=== PATIENT | female | born 1955 | race Caucasian/White ===

== ENCOUNTER → 2020-01-15 07:59 | Outpatient (CLI) | payer MEDICARE, SELFPAY ==
[2020-01-15 12:53] LABS: Add Manual Diff / Slide Review NO; Basophils Absolute Auto 0 /uL (0-100); Basophils Percent Auto 0.6 % (0-2); Eosinophils Absolute Auto 100 /uL (0-450); Eosinophils Percent Auto 3.2 % (2-4); Hematocrit 37.1 % (36-46); Hemoglobin 11.6 g/dL (12.0-16.0); Lymphocytes Absolute Auto 1100 /uL (1100-4500); Lymphocytes Percent Auto 30.2 % (25-40); Mean Corpuscular HGB Conc 31.3 % (30-36); Mean Corpuscular Hemoglobin 23.3 PG (26-34); Mean Corpuscular Volume 74.3 fL (80-100); Monocytes Absolute Auto 400 /uL (0-900); Monocytes Percent Auto 10.7 % (3-14); Neutrophils Absolute Auto 2000 /uL (1500-7000); Neutrophils Percent Auto 55.3 % (50-75); Platelet Count 156 X10^3/uL (150-400); Red Cell Distribution Width 16.5 % (11.6-14.8); White Blood Cell Count 3.7 X10^3/uL (4.5-11.0)
[2020-01-15 13:05] LABS: Alanine Aminotransferase 24 IU/L (<35); Albumin 4.1 g/dL (3.5-5.0); Albumin Globulin Ratio 1.6 (1.0-2.8); Alkaline Phosphatase 67 U/L (38-126); Aspartate Aminotransferase 31 IU/L (14-36); BUN Creatinine Ratio 23.2 (6-22); Bilirubin Total 0.4 mg/dL (0.2-1.3); Blood Urea Nitrogen 16 mg/dL (7-17); Calcium 8.9 mg/dL (8.4-10.2); Carbon Dioxide 32 mmol/L (22-32); Chloride 101 mmol/L (98-107); Cholesterol 292 mg/dL (140-199); Estimated Glomerular Filt Rate > 60.0 mL/min (>60); Globulin 2.6 g/dL (1.7-4.1); Glucose 96 mg/dL (80-110); HDL Cholesterol 46 mg/dL (40-60); HEMOLYSIS < 15 (0-50); LDL Cholesterol Calculated 213 mg/dL (<100); Potassium 4.1 mmol/L (3.4-5.1); Sodium 137 mmol/L (137-145); Total Protein 6.7 g/dL (6.3-8.2); Triglycerides 166 mg/dL (35-150)
[2020-01-16 01:39] LABS: COVID19 Sendout Not Detected (Not Detect)
== END ==
PROVIDERS: Physician Assistant; Referring Provider Internal Medicine; Visit Provider Internal Medicine
DX: Z11.59 Encounter for screening for other viral diseases (principal); E78.5 Hyperlipidemia, unspecified
CPT/HCPCS: 36415; 80053; 80061; 85025; 87635

== ENCOUNTER → 2020-02-24 07:01 | Outpatient (CLI) | payer MEDICARE, SELFPAY ==
[2020-02-24 07:27] LABS: Alanine Aminotransferase 19 IU/L (<35); Cholesterol 182 mg/dL (140-199); HDL Cholesterol 51 mg/dL (40-60); LDL Cholesterol Calculated 97 mg/dL (<100); Triglycerides 172 mg/dL (35-150)
== END ==
PROVIDERS: PCP Internal Medicine; Referring Provider Internal Medicine; Visit Provider Internal Medicine
DX: E78.5 Hyperlipidemia, unspecified (principal)
CPT/HCPCS: 36415; 80061; 84460

== ENCOUNTER → 2020-11-04 10:56 | Outpatient (CLI) | payer OTHER, SELFPAY ==
--- NOTE | 2020-11-04 | DI.MG.S_ITS ---
BILATERAL DIGITAL SCREENING MAMMOGRAM 3D/2D WITH CAD: 11/04/2020 CLINICAL: Routine screening. Comparison is made to exams dated: 03/27/2019 mammogram, 11/07/2017 mammogram, 09/20/2015 mammogram, and 10/27/2013 mammogram - outside facility. The tissue of both breasts is heterogeneously dense. This may lower the sensitivity of mammography. Current study was also evaluated with a Computer Aided Detection (CAD) system. No significant masses, calcifications, or other findings are seen in either breast. There has been no significant interval change. IMPRESSION: NEGATIVE There is no mammographic evidence of malignancy. A 1 year screening mammogram is recommended. This exam was interpreted at Station ID: [id number]. NOTE: For mammograms, a report in lay terms will be sent to the patient. Approximately 15% of breast malignancies will not be visualized mammographically. In the management of a palpable breast mass, a negative mammogram must not discourage biopsy of a clinically suspicious lesion. Electronically Signed By: Sam saab/yolanda:11/04/2020 16:28:25 letter sent: Normal Exam ACR BI-RADS Category 1: Negative 3341F
== END ==
PROVIDERS: PCP Physician Assistant; Referring Provider Physician Assistant; Visit Provider Physician Assistant
DX: Z12.31 Encounter for screening mammogram for malignant neoplasm of breast (principal)
CPT/HCPCS: 77063; 77067

== ENCOUNTER → 2021-04-17 16:10 | Outpatient (CLI) | payer OTHER, SELFPAY ==
--- NOTE | 2021-04-17 | DI.RAD.S_ITS ---
PROCEDURE: XR HIP W PEL IF DONE RT 2V INDICATIONS: PAIN TECHNIQUE: AP pelvis with lateral view(s) of the right hip(s). COMPARISON: [facility], CR, XR LUMBAR SPINE 2-3V, 04/17/2021, 16:12. FINDINGS: Bones: No fractures or dislocations. Pelvic ring appears intact. No suspicious bony lesions. Mild joint narrowing with periarticular osteophyte formation. Degenerative disc and facet disease involves the inferior lumbar spine. Soft tissues: The visualized bowel gas pattern is normal. No suspicious soft tissue calcifications. IMPRESSION: Mild symmetric hip joint degeneration. Dictated by: Vernon Carlin RR Interpreted: Carlos Woods MD on 04/17/2021 at 16:44 Transcribed by: ANASTASIA on 04/17/2021 at 16:45 Approved by: Carlos Woods M.D. on 04/17/2021 at 17:09
--- NOTE | 2021-04-17 | DI.RAD.S_ITS ---
PROCEDURE: XR CERVICAL SPINE 2V OR 3V INDICATIONS: PAIN TECHNIQUE: 3 view(s) of the cervical spine were acquired. COMPARISON: None. FINDINGS: Bones: No fractures or dislocations to the C7-T1 level. There is straightening and reversal of normal cervical lordosis. Degenerative endplate changes, loss of disc height and bilateral facet hypertrophic changes are noted throughout cervical spine more prominent at C4-5 and C5-6 levels. The lateral masses of C1 appear intact on the odontoid view. No suspicious bony lesions. Soft tissues: No prevertebral soft tissue swelling. IMPRESSION: No acute cervical spine fracture or dislocation. Degenerative disc disease throughout cervical spine as above. Dictated by: Carlos Woods M.D. on 04/17/2021 at 16:46 Approved by: Carlos Woods M.D. on 04/17/2021 at 16:52
--- NOTE | 2021-04-17 | DI.RAD.S_ITS ---
PROCEDURE: XR LUMBAR SPINE 2-3V INDICATIONS: PAIN TECHNIQUE: 3 views of the lumbar spine were acquired. COMPARISON: None. FINDINGS: Bones: 5 zpi-hpm-akzrsly vertebrae are present. Mild levoscoliosis centered at the L3 level. Multilevel grade 1 retrolisthesis. Grade 1 spondylolisthesis L5-S1. Multilevel disc degeneration, moderate to severe at the L5-S1 level. Moderate L4-L5 and L5-S1 facet joint arthropathy. No vertebral body compression fractures. No suspicious bony lesions. Soft tissues: Overlying bowel gas pattern is normal. No suspicious soft tissue calcifications. IMPRESSION: Multilevel spondylosis. Dictated by: Vernon Carlin RRA Interpreted: Carlos Woods MD on 04/17/2021 at 16:48 Transcribed by: ANASTASIA on 04/17/2021 at 16:49 Approved by: Carlos Woods M.D. on 04/17/2021 at 17:09
== END ==
PROVIDERS: PCP Physician Assistant; Referring Provider Physician Assistant; Visit Provider Physician Assistant
DX: M47.816 Spondylosis without myelopathy or radiculopathy, lumbar region (principal); M47.817 Spondylosis without myelopathy or radiculopathy, lumbosacral region; M50.321 Other cervical disc degeneration at C4-C5 level; M16.11 Unilateral primary osteoarthritis, right hip; M25.551 Pain in right hip
CPT/HCPCS: 72040; 72100; 73502

== ENCOUNTER → 2022-10-10 16:23 | Outpatient (CLI) | payer OTHER, SELFPAY ==
--- NOTE | 2022-10-10 | DI.MG.S_ITS ---
BILATERAL DIGITAL SCREENING MAMMOGRAM 3D/2D WITH CAD: 10/10/2022 CLINICAL: Routine screening. Comparison is made to exams dated: 11/04/2020 mammogram - [facility], 03/27/2019 mammogram, and 11/07/2017 mammogram - outside facility. There are scattered areas of fibroglandular density in both breasts (category b / 25%-50% glandular tissue). Current study was also evaluated with a Computer Aided Detection (CAD) system. No significant masses, calcifications, or other findings are seen in either breast. There has been no significant interval change. IMPRESSION: NEGATIVE There is no mammographic evidence of malignancy. A 1 year screening mammogram is recommended. Based on the Tyrer Cuzick model (a risk assessment model) the patient's lifetime risk is 5.9% and her 10 year risk is 3.5%. According to the ACR, ACS, and NCCN guidelines, an annual breast MRI exam along with mammogram is recommended if the patient's lifetime risk is 20% or greater. This exam was interpreted at Station ID: [id number]. NOTE: For mammograms, a report in lay terms will be sent to the patient. Approximately 15% of breast malignancies will not be visualized mammographically. In the management of a palpable breast mass, a negative mammogram must not discourage biopsy of a clinically suspicious lesion. Electronically Signed By: Miguel Angel prasad/yolanda:10/11/2022 08:51:51 letter sent: Normal Exam ACR BI-RADS Category 1: Negative 3341F
== END ==
PROVIDERS: PCP Physician Assistant; Referring Provider Physician Assistant; Visit Provider Physician Assistant
DX: Z12.31 Encounter for screening mammogram for malignant neoplasm of breast (principal)
CPT/HCPCS: 77063; 77067

== ENCOUNTER → 2022-12-28 16:15 | Outpatient (CLI) | payer OTHER, SELFPAY ==
--- NOTE | 2022-12-28 16:17 | DI.RAD.S_ITS ---
PROCEDURE: XR WRIST LT MIN 3V INDICATIONS: Left wrist injury TECHNIQUE: 4 views of the wrist were acquired. COMPARISON: None. FINDINGS: Bones: No fractures or dislocations. No suspicious bony lesions. Moderate osteoarthritic changes of the triscaphe and 1st carpometacarpal joint. Osteoarthritic changes of the 1st interphalangeal joint. Scaphoid view: No fracture. Soft tissues: No suspicious soft tissue calcifications. IMPRESSION: No acute osseous abnormality. If pain persists with conservative management, consider repeat x-ray in 10-14 days or cross-sectional imaging. Dictated by: Xavier Ag M.D. on 12/28/2022 at 16:39 Approved by: Xavier Ag M.D. on 12/28/2022 at 16:40
== END ==
PROVIDERS: PCP Physician Assistant; Referring Provider Registered Nurse; Visit Provider Registered Nurse
DX: M25.532 Pain in left wrist (principal)
CPT/HCPCS: 73110

== ENCOUNTER → 2023-07-08 06:55 | Outpatient (CLI) | payer MEDICARE, SELFPAY ==
[2023-07-08 08:01] LABS: Add Manual Diff / Slide Review NO; Basophils Absolute Auto 100 /uL (0-100); Basophils Percent Auto 1.3 % (0-2); Eosinophils Absolute Auto 100 /uL (0-450); Eosinophils Percent Auto 2.4 % (2-4); Hemoglobin 13.9 g/dL (12.0-16.0); Lymphocytes Absolute Auto 1200 /uL (1100-4500); Lymphocytes Percent Auto 27.9 % (25-40); Mean Corpuscular HGB Conc 33.1 % (30-36); Mean Corpuscular Hemoglobin 28.9 PG (26-34); Mean Corpuscular Volume 87.4 fL (80-100); Monocytes Absolute Auto 500 /uL (0-900); Monocytes Percent Auto 10.2 % (3-14); Neutrophils Absolute Auto 2600 /uL (1500-7000); Neutrophils Percent Auto 58.2 % (50-75); Platelet Count 159 X10^3/uL (150-400); Red Cell Distribution Width 13.6 % (11.6-14.8); White Blood Cell Count 4.4 X10^3/uL (4.5-11.0)
[2023-07-08 08:05] LABS: Hemoglobin A1C% w Est Avg Glu 5.2 % (4.0-6.0)
[2023-07-08 08:22] LABS: Alanine Aminotransferase 45 IU/L (<35); Albumin 4.1 g/dL (3.5-5.0); Albumin Globulin Ratio 1.8 (1.0-2.8); Alkaline Phosphatase 67 U/L (38-126); Aspartate Aminotransferase 30 IU/L (14-36); BUN Creatinine Ratio 21.4 (6-22); Bilirubin Total 0.5 mg/dL (0.2-1.3); Blood Urea Nitrogen 15 mg/dL (7-17); Calcium 8.8 mg/dL (8.4-10.2); Carbon Dioxide 29 mmol/L (22-32); Chloride 103 mmol/L (98-107); Cholesterol 208 mg/dL (140-199); Estimated Glomerular Filt Rate > 60 mL/min (>60); Globulin 2.3 g/dL (1.7-4.1); Glucose 105 mg/dL (80-110); HDL Cholesterol 53 mg/dL (40-60); HEMOLYSIS < 15 (0-50); LDL Cholesterol Calculated 130 mg/dL (<100); Potassium 4.2 mmol/L (3.4-5.1); Sodium 135 mmol/L (137-145); Total Protein 6.4 g/dL (6.3-8.2); Triglycerides 127 mg/dL (35-150)
[2023-07-08 08:25] LABS: High Sensitivity CRP - Cardiac 1.4 mg/L (1.0-3.0)
[2023-07-08 08:54] LABS: TSH w/ Reflex to FT4 3.53 uIU/mL (0.47-4.68)
== END ==
PROVIDERS: PCP Family Medicine; Referring Provider Family Medicine; Visit Provider Family Medicine
DX: Z13.220 Encounter for screening for lipoid disorders (principal); R73.9 Hyperglycemia, unspecified; E78.5 Hyperlipidemia, unspecified; R53.83 Other fatigue; D64.9 Anemia, unspecified; E78.00 Pure hypercholesterolemia, unspecified
CPT/HCPCS: 36415; 80053; 80061; 83036; 84443; 85025; 86140

== ENCOUNTER 2023-07-16 11:42 | Day surgery (SDC) | payer MEDICARE, SELFPAY ==
[2023-07-16 12:07] VITALS: BP 127/78; PULSE 66; RESP 18; TEMP 36.2; O2SAT 98
[2023-07-16] MEDS: LACTATED RINGERS 1,000 ML 42 ML IV (12:17)
--- NOTE | 2023-07-16 12:55 | PM.HP.1 ---
History of Present Illness History of Present Illness Date Patient Seen: 07/16/23 Time Patient Seen: 12:55 Chief complaint: Colonoscopy Narrative: 67-year-old woman here for screening colonoscopy. Personal history of colonic polyps last colonoscopy 5 years ago. No family history of intestinal malignancy. Recent diarrhea which she attributes to D mannose. [facility] Medical History Colon polyps Social History Smoking Status: Former smoker Tobacco: How many years used: 7 second hand exposure: Yes (ex 7 years ago ) alcohol intake: current substance use type: does not use Meds Home Medications and Allergies Home Medications Medication Instructions Recorded Confirmed Type d-mannose 500 mg capsule mg PO 12/28/22 06/28/23 History simvastatin 40 mg tablet 40 mg PO ONCE PM 12/28/22 06/28/23 History cholecalciferol (vitamin D3) 50 50 mcg PO DAILY 06/28/23 06/28/23 History mcg (2,000 unit) capsule (Vitamin D3) estradiol 0.01% (0.1 mg/gram) 0.5 g vaginal 2XW 06/28/23 06/28/23 History vaginal cream magnesium oxide 400 mg PO BEDTIME 06/28/23 06/28/23 History sodium,potassium,mag sulfates 17.5 See Rx Instructions PO .COMPLEX 07/11/23 Rx gram-3.13 gram-1.6 gram oral soln #354 mL (Suprep Bowel Prep Kit) estradiol 0.01% (0.1 mg/gram) 1 g vaginal 2XW 07/16/23 07/16/23 History vaginal cream Allergies Allergy/AdvReac Type Severity Reaction Status Date / Time nitrofurantoin AdvReac Severe Rash, fever Verified 07/16/23 12:03 [From Macrobid] ciprofloxacin AdvReac Intermediate Hives Verified 07/16/23 12:03 penicillin G AdvReac Intermediate hives Verified 07/16/23 12:03 sulfamethoxazole AdvReac Intermediate Rash Verified 07/16/23 12:03 [From Bactrim] trimethoprim [From Bactrim] AdvReac Intermediate Rash Verified 07/16/23 12:03 Exam Vital Signs (past 8 hours): - 07/16/23 12:07 Temperature 97.2 F L Pulse Rate 66 Respiratory Rate 18 Blood Pressure 127/78 Pulse Oximetry 98 Oxygen Delivery Method Room Air Oxygen Delivery Method Room Air Narrative Exam Narrative: General adult woman alert oriented no acute distress Chest nonlabored respiration Extremities warm well perfused Assessment & Plan Assessment & Plan narrative: The patient requires colorectal screening and colonoscopy is recommended. Technical details were discussed. Risks, benefits, alternatives explained. Risks including but not limited to myocardial infarction, aspiration, bleeding, pain, missed lesion, incomplete examination, need for further radiographic studies, intestinal injury, and need for major abdominal surgery were discussed. All questions were answered to their satisfaction, and they are in agreement with this plan.
--- NOTE | 2023-07-16 13:17 | P.OP.COLON_ITS ---
Operative Date/Time/Diagnoses Date of procedure: 07/16/23 Time of procedure: 13:17 Pre-op diagnosis: Personal history of colonic polyps Colorectal screening Procedure & Clinicians Study performed: Screening colonoscopy Same procedure as scheduled: Yes Indications: Colorectal screening Personal history of colonic polyps Surgeon: Vishal Peralta Procedure Notes Procedure in detail: The history and physical was performed/updated and the patient is ASA class is 2. The procedure was discussed in detail with the patient. Potential risks complications including infection, bleeding, missed diagnosis, perforation, need for surgery, and were explained. Their questions were answered and informed consent was obtained. Patient was brought to the procedure room and placed standard monitoring equipment. The patient's vital signs were monitored continuously throughout the entire procedure. Prior to starting time-out was performed. The patient was placed in the left lateral recumbent position. Procedural sedation was administered by anesthesia. Examination began with a thorough inspection of the perianal area there was no evidence of fissures, fistulae, external hemorrhoids or cutaneous malignancy. The colonoscopy scope was then placed into the anal canal and was advanced to the cecum, which was identified by the ileocecal valve, the appendiceal orifice and the confluence of the taenia. The scope was then slowly withdrawn examining colon thoroughly in all directions, irrigating it of any residual stool. The scope was retroflexed within the rectum The patient tolerated the procedure well. They will be discharged once criteria are met. The prep was of good/excellent quality. The withdrawl time was 6 minutes. FINDINGS * Unremarkable colonoscopy. No masses polyps or inflammation. * Internal hemorrhoids Specimen(s): none sent Impression: Normal colonoscopy Post-procedure Plan for aftercare: No further colonoscopy necessary unless symptomatic Disposition: same day surgery
[2023-07-16 13:21] VITALS: BP 101/59; PULSE 68; RESP 12; TEMP 36.4; O2SAT 96
[2023-07-16 13:26] VITALS: BP 109/60; PULSE 60; RESP 12; O2SAT 96
[2023-07-16 13:32] VITALS: BP 105/65; PULSE 64; RESP 14; O2SAT 95
[2023-07-16 13:35] VITALS: BP 112/68; PULSE 62; RESP 18; O2SAT 96
== END 2023-07-16 13:49 | disposition home or self-care (01) ==
PROVIDERS: PCP Family Medicine; Referring Provider Surgery; Visit Provider Surgery
PROC: 0DJD8ZZ Inspection of Lower Intestinal Tract, Via Natural or Artificial Opening Endoscopic (ICD-10-PCS; CPT 45378; principal; 2023-07-16 14:15)
DX: Z12.11 Encounter for screening for malignant neoplasm of colon (principal); Z86.010 Personal history of colon polyps; K64.8 Other hemorrhoids
CPT/HCPCS: G0105

== ENCOUNTER → 2023-07-22 10:03 | Outpatient (CLI) | payer MEDICARE, SELFPAY | PROVIDERS: PCP Family Medicine; Visit Provider Nurse Practitioner Family | DX: R30.0 Dysuria (principal) | CPT/HCPCS: 87077; 87086 ==

== ENCOUNTER → 2023-08-12 12:13 | Outpatient (CLI) | payer MEDICARE, SELFPAY | PROVIDERS: PCP Family Medicine; Visit Provider Registered Nurse | DX: R39.9 Unspecified symptoms and signs involving the genitourinary system (principal) | CPT/HCPCS: 87077; 87086 ==

== ENCOUNTER → 2024-05-28 08:00 | Outpatient (CLI) | payer MEDICARE, SELFPAY ==
[2024-05-28 08:57] LABS: Alanine Aminotransferase 26 IU/L (<35); Albumin 4.2 g/dL (3.5-5.0); Alkaline Phosphatase 61 U/L (38-126); Aspartate Aminotransferase 33 IU/L (14-36); BUN Creatinine Ratio 19.8 (6-22); Bilirubin Total 0.4 mg/dL (0.2-1.3); Blood Urea Nitrogen 16 mg/dL (7-17); Calcium 9.2 mg/dL (8.4-10.2); Carbon Dioxide 27 mmol/L (22-32); Chloride 101 mmol/L (98-107); Cholesterol 181 mg/dL (140-199); Estimated Glomerular Filt Rate > 60 mL/min (>60); Globulin 2.1 g/dL (1.7-4.1); Glucose 99 mg/dL (80-110); HDL Cholesterol 52 mg/dL (40-60); HEMOLYSIS < 15 (0-50); LDL Cholesterol Calculated 102 mg/dL (<100); Potassium 4.8 mmol/L (3.4-5.1); Sodium 135 mmol/L (137-145); Total Protein 6.3 g/dL (6.3-8.2); Triglycerides 135 mg/dL (35-150)
[2024-05-28 09:12] LABS: Vitamin D 25 Hydroxy (D3) 38.2 ng/mL (30.0-100.0)
[2024-05-28 09:33] LABS: Ferritin 7 ng/mL (11-264)
[2024-05-29 04:12] LABS: CRP, High Sensitivity 0.81 mg/L (0.00-3.00)
[2024-05-29 10:09] LABS: Dehydroepiandrosterone Sulfate 39.7 ug/dL (20.4-186.6)
[2024-05-29 13:10] LABS: Insulin Level Total 7.8 uIU/mL (2.6-24.9)
== END ==
PROVIDERS: PCP Family Medicine; Referring Provider Family Medicine; Visit Provider Family Medicine
DX: R74.01 Elevation of levels of liver transaminase levels (principal); E88.810 Metabolic syndrome; E78.5 Hyperlipidemia, unspecified; E66.9 Obesity, unspecified; K21.9 Gastro-esophageal reflux disease without esophagitis; Z71.89 Other specified counseling
CPT/HCPCS: 36415; 80053; 80061; 82306; 82627; 82728; 83525; 84443; 86140

== ENCOUNTER → 2024-07-07 06:58 | Outpatient (CLI) | payer MEDICARE, SELFPAY ==
[2024-07-07 07:47] LABS: Hematocrit 39.5 % (36-46); Hemoglobin 12.9 g/dL (12.0-16.0); Mean Corpuscular HGB Conc 32.6 % (30-36); Mean Corpuscular Hemoglobin 26.2 PG (26-34); Mean Corpuscular Volume 80.3 fL (80-100); Platelet Count 169 X10^3/uL (150-400); Red Blood Cell Count 4.93 X10^6/uL (4.0-5.2); Red Cell Distribution Width 15.5 % (11.6-14.8); White Blood Cell Count 3.8 X10^3/uL (4.5-11.0)
[2024-07-07 08:51] LABS: Ferritin 6 ng/mL (11-264)
[2024-07-07 11:53] LABS: Bacteria Urine None Seen; RBC Urine None Seen (0-5/HPF); Squamous Epithelial Cell Urine 0-1 /HPF (0-5/HPF); Urine Volume 10mL (spun); WBC Urine None Seen (0-5/HPF)
[2024-07-07 11:54] LABS: Culture Indicated Urine Cult Not Indicated
== END ==
PROVIDERS: PCP Family Medicine; Referring Provider Family Medicine; Visit Provider Family Medicine
DX: E61.1 Iron deficiency (principal); N39.0 Urinary tract infection, site not specified
CPT/HCPCS: 36415; 81015; 82728; 85027

== ENCOUNTER → 2024-08-13 06:58 | Outpatient (CLI) | payer MEDICARE, SELFPAY ==
[2024-08-13 08:01] LABS: HEMOLYSIS < 15 (0-50); Iron 99 ug/dL (37-170)
[2024-08-13 08:11] LABS: Percent Iron Saturation 30 % (15-50); Total Iron Binding Capacity 329 ug/dL (265-497); Transferrin 277 mg/dL (206-381)
[2024-08-13 08:14] LABS: Vitamin D 25 Hydroxy (D3) 72.7 ng/mL (30.0-100.0)
[2024-08-13 08:35] LABS: Ferritin 25 ng/mL (11-264)
== END ==
PROVIDERS: PCP Family Medicine; Referring Provider Family Medicine; Visit Provider Family Medicine
DX: E61.1 Iron deficiency (principal); E55.9 Vitamin D deficiency, unspecified
CPT/HCPCS: 36415; 82306; 82728; 83540; 83550

== ENCOUNTER → 2024-10-14 10:39 | Outpatient (CLI) | payer MEDICARE, SELFPAY ==
[2024-10-14 11:15] LABS: Hematocrit 41.5 % (36-46); Hemoglobin 14.1 g/dL (12.0-16.0); Mean Corpuscular HGB Conc 33.9 % (30-36); Mean Corpuscular Hemoglobin 28.0 PG (26-34); Mean Corpuscular Volume 82.4 fL (80-100); Platelet Count 163 X10^3/uL (150-400)
[2024-10-14 11:46] LABS: Alanine Aminotransferase 20 IU/L (<35); Albumin 4.3 g/dL (3.5-5.0); Albumin Globulin Ratio 2.0 (1.0-2.8); Alkaline Phosphatase 73 U/L (38-126); Blood Urea Nitrogen 21 mg/dL (7-17); Calcium 9.2 mg/dL (8.4-10.2); Carbon Dioxide 27 mmol/L (22-32); Chloride 103 mmol/L (98-107); Estimated Glomerular Filt Rate > 60 mL/min (>60); Globulin 2.2 g/dL (1.7-4.1); Glucose 96 mg/dL (70-99); HEMOLYSIS < 15 (0-50); Potassium 4.3 mmol/L (3.4-5.1); Sodium 136 mmol/L (137-145); Total Protein 6.5 g/dL (6.3-8.2)
[2024-10-14 12:18] LABS: Ferritin 22 ng/mL (11-264)
== END ==
PROVIDERS: PCP Family Medicine; Referring Provider Family Medicine; Visit Provider Family Medicine
DX: D64.9 Anemia, unspecified (principal); R26.89 Other abnormalities of gait and mobility; E61.1 Iron deficiency
CPT/HCPCS: 36415; 80053; 82728; 85027

== ENCOUNTER → 2025-03-17 10:20 | Outpatient (CLI) | payer MEDICARE, SELFPAY ==
--- NOTE | 2025-03-23 14:01 | DI.NM.S_ITS ---
DATE OF SERVICE: 03/17/2025 PROCEDURE: Exercise stress test. INDICATIONS: Chest pain. CARDIAC STRESS: The patient underwent exercise stress test under the supervision of an attending staff. She walked on Tyler protocol for 11 minute and 59 seconds, achieved SIMONA of -68%, 99% of target heart rate with maximum heart rate 148. Resting blood pressure 130/82 and peak blood pressure 160/92. Baseline rhythm sinus with left axis with left anterior fascicular block. During stress, no convincing ischemic EKG changes or significant arrhythmias seen. No chest pain or anginal symptoms. Normal recovery. CONCLUSION: Exercise stress test is negative for inducible ischemia. Excellent exercise tolerance. SIMONA -68%. Normal hemodynamic response. No ischemic EKG changes or significant arrhythmias. No anginal symptoms. Overall, low-risk study. WendieMarko llanos - J[place]AN [place]IE[place]/verenice/[place] doc#: [id number]/job#: [id number] dd: 03/17/2025 13:07:00 dt: 03/17/2025 13:43:00 DICTATING /COPIES TO: Vladislav Mckinney MD COPIES MNE: MELISSA;
== END ==
LOC: NUCM 10:21
PROVIDERS: PCP Family Medicine; Referring Provider Family Medicine; Visit Provider Family Medicine
DX: K21.9 Gastro-esophageal reflux disease without esophagitis (principal); R07.89 Other chest pain; R10.13 Epigastric pain
CPT/HCPCS: 93017